=== PATIENT | female | born 1940 | race African-American/Black ===

== ENCOUNTER 2018-09-10 10:31 | Outpatient (CLI) | payer MEDICARE ==
--- NOTE | 2018-09-10 13:54 | Magnetic Resonance Report ---
MR CERVICAL SPINE WITHOUT CONTRAST HISTORY: Pain. TECHNIQUE: Axial T2 and T2 gradient. Sagittal T1, T2 and STIR. COMPARISON: None at this facility. FINDINGS: The cervical spinal cord is normal size and signal intensity throughout. No abnormal intramedullary signal is detected. Normal height and alignment of the cervical vertebral bodies. Normal bone marrow signal. Disc space height is normal. There is mild diffuse disc desiccation. The facet joints are in appropriate relationship. The minimal facet arthropathy is identified at all levels. No hypertrophic changes. The left C4-5 facet joint is most affected. The paraspinal soft tissues are within normal limits. C2-3: Within normal limits. C3-4: Within normal limits. C4-5: A focal midline disc protrusion is identified measuring 3.5 mm AP and 4.5 mm transverse. The protrusion abuts but does not displace the anterior spinal cord. Moderate left facet arthropathy. C5-6: Within normal limits. C6-7: Within normal limits. C7-T1: Within normal limits. IMPRESSION: Minimal cervical spondylosis as described. Focal midline disc protrusion at C4-5. See above.
== END 2018-09-10 10:32 | disposition home or self-care (01) ==
LOC: MRI 10:31
PROVIDERS: ATTEND Otolaryngology
DX: M47.812 Spondylosis without myelopathy or radiculopathy, cervical region (principal); M50.221 Other cervical disc displacement at C4-C5 level
CPT/HCPCS: 72141